=== PATIENT | male | born 1980 | race Caucasian/White ===

== ENCOUNTER → 2021-02-07 08:27 | Outpatient (CLI) | payer OTHER, SELFPAY ==
[2021-02-07 13:02] LABS: Cholesterol 212 mg/dL (200); High Density Lipoprotein 50 mg/dL; Triglycerides 85 mg/dL; Very Low Density Lipoprotein 17 mg/dL (5-40)
== END ==
PROVIDERS: Visit Provider Family Medicine
DX: Z00.00 Encounter for general adult medical examination without abnormal findings (principal); E78.5 Hyperlipidemia, unspecified
CPT/HCPCS: 36415; 80061

== ENCOUNTER → 2025-07-14 | Outpatient (CLI) | payer OTHER, SELFPAY | END | disposition home or self-care (01) | LOC: MTLAB 16:47 | PROVIDERS: PCP Family Medicine; Referring Provider Family Medicine; Visit Provider Family Medicine | DX: R50.9 Fever, unspecified (principal) | CPT/HCPCS: 36415; 86617 ==